=== PATIENT | male | born 1965 | race Hispanic/Latino ===

== ENCOUNTER 2019-10-05 12:39 | Emergency (ER) | payer BC ==
[~2019-10-05] VITALS: Ht 175.3 cm; Wt 113.4 kg
--- NOTE | 2019-10-05 13:19 | Emergency Department Note ---
History of Present Illnes History of Present Illness History of Present Illness This is a 53 year old male . Historian: Patient Arrival Mode: Car [employer] Sales Required: No Onset (how long ago): week(s) (1, Pt tested COVID pos 9 days ago) Severity: mild Onset quality: gradual Duration (how long): week(s) (1) Timing of current episode: constant Progression: unchanged Context: Reports recent illness (COVID 19) Relieving factors: none Exacerbating factors: none Associated symptoms: Reports cough, Reports headaches Treatments prior to arrival: none Past Medical/Family History Physician Review I have reviewed the patient's past medical and family history. Any updates have been documented here. Past Medical History Recent Fever: No Clinical Suspicion of Infectio: Yes New/Unexplained Change in Ment: No Past Medical History: None Past Surgical History: None Social History Smoking Cessation: Never Smoker Alcohol Use: None Any Illegal Drug Use: No Review of Systems Review of Systems Constitutional: Denies fever Respiratory: Reports chest congestion, Reports cough Neurological: Reports headache Review of other systems: All other systems negative Physical Exam Related Data Allergies: Coded Allergies: No Known Allergies (Unverified , 10/05/19) Vital signs reviewed: Yes Physical Exam CONSTITUTIONAL Constitutional: Present well-developed HENT HENT: Present normocephalic EYES Eyes: Reports conjunctivae normal NECK Neck: Present supple PULMONARY Pulmonary: Present breath sounds normal CARDIOVASCULAR Cardiovascular: Present regular rhythm GASTROINTESTINAL Abdominal: Present soft GENITOURINARY SKIN Skin: Present warm MUSCULOSKELETAL Musculoskeletal: Present ROM normal NEUROLOGICAL Neurological: Present alert, Present oriented x 3 PSYCHOLOGICAL Psychological: Present mood/affect normal Results Imaging Imaging results reviewed: Yes Impressions bilateral bibasilar opacities Assessment & Plan Medical Decision Making MDM PNEUMONIA, Bronchitis, COVID Assessment & Plan Final Impression: (1) Pneumonia Depart Disposition: HOME, SELF-retirement Meds Active Scripts Albuterol Sulfate (VENTOLIN HFA) 18 Gm Hfa.aer.ad, 2 PUMP INH QID for cough for 7 Days, #1 INH Prov:ARTIE BRUMFIELD MD 10/05/19 Benzonatate (TESSALON PERLE) 100 Mg Capsule, 100 MG PO TID for cough for 5 Days, #15 Prov:ARTIE BRUMFIELD MD 10/05/19 Azithromycin (Z-TRENT) 250 Mg Tablet, 250 MG PO UD, #1 UDPKT Z-Pack Prov:ARTIE BRUMFIELD MD 10/05/19 ARTIE BRUMFIELD MD Oct 05, 2019 13:19
[2019-10-05] MEDS ORDERED: TESSALON PERLE100 MG PO (13:22)
[2019-10-05] MEDS ORDERED: AZITHROMYCIN250 MG PO (13:22)
[2019-10-05] MEDS ORDERED: VENTOLIN HFA18 GM INH (13:22)
--- NOTE | 2019-10-05 14:15 | Diagnostic Imaging Report ---
EXAMINATION: CXR 1 VEW - HOPD INDICATION: cough COMPARISON: None FINDINGS: TUBES and LINES: None. LUNGS: The right lung is mildly hypoinflated. There are patchy opacities of the bilateral lung bases. PLEURA: No pleural effusion or pneumothorax. HEART AND MEDIASTINUM: The cardiomediastinal silhouette is unremarkable. Elevation of the right hemidiaphragm. BONES AND SOFT TISSUES: No acute osseous lesion. Soft tissues are unremarkable. UPPER ABDOMEN: No free air under the diaphragm. IMPRESSION: Bibasilar patchy opacities may represent infectious process in the setting of cough. Viral pneumonia is possible. Elevation of the right hemidiaphragm. Hypoinflated right lung. Comparison to prior outside imaging would be helpful if available. If of clinical concern, follow-up nonemergent fluoroscopic sniff test may be considered. Signed by: Dr. Sera Farfan MD on 10/05/2019 2:12 PM
== END 2019-10-05 14:26 | disposition home or self-care (01) ==
LOC: FSED 13:18
DX: J18.9 Pneumonia, unspecified organism (principal)
CPT/HCPCS: 71045; 99283

== ENCOUNTER 2020-05-28 13:07 | Emergency (ER) | payer BC ==
[~2020-05-28] VITALS: Ht 172.7 cm; Wt 124.9 kg
[~2020-05-28 13:07] MED LIST: AZITHROMYCIN250 MG PO; TESSALON PERLE100 MG PO; VENTOLIN HFA18 GM INH
[2020-05-28] MEDS ORDERED: IBUPROFEN IB200 MG PO (13:59)
[2020-05-28] MEDS ORDERED: TYLENOL # 31 EA PO (13:59)
[2020-05-28] MEDS ORDERED: ZOFRAN4 MG PO (13:59)
[2020-05-28] MEDS ORDERED: DOXYCYCLINE HY100 MG PO (14:01)
[2020-05-28] MEDS ORDERED: CLEOCIN HCL300 MG PO (14:01)
[2020-05-28 15:02] VITALS: BP 159/87
== END 2020-05-28 15:07 | disposition home or self-care (01) ==
LOC: FSED 13:15
DX: S80.12XA Contusion of left lower leg, initial encounter (principal); L03.116 Cellulitis of left lower limb; W50.1XXA Accidental kick by another person, initial encounter
CPT/HCPCS: 93971; 99283